=== PATIENT | female | born 1995 | race Caucasian/White ===

== ENCOUNTER 2017-04-01 01:11 | Emergency (ER) | payer BC ==
[2017-04-01 01:53] LABS: #Lymphocytes 0.9 thou/uL (1.20-3.40); #Monocytes 0.1 thou/uL (0.11-0.59); #Neutrophils 4.5 thou/uL (1.40-6.50); %Basophils 0.5 % (0.0-1.0); %Eosinophils 0.6 % (0.0-10.0); %Lymphocytes 15.6 % (28.0-48.0); %Monocytes 2.6 % (0.0-4.0); %Neutrophils 80.8 % (31.0-61.0); Hemoglobin 13.9 g/dL (12.0-16.0); Mean Corpuscular HGB CONC 34.7 g/dL (32.0-36.0); Mean Corpuscular Hemoglobin 32.3 pg (25.0-35.0); Mean Corpuscular Volume 93.1 fl (77.0-87.0); Mean Platelet Volume 6.6 fL (7.4-10.4); Platelet Count 301 thou/uL (130-400); RBC Distribution Width 10.9 % (11.5-14.5); Red Blood Cell (RBC) Count 4.31 mill/uL (4.00-5.20); White Blood Cell (WBC) Count 5.6 thou/uL (4.8-10.8)
[2017-04-01 02:06] LABS: Bilirubin Negative (Negative); Blood, Urine Negative (Negative); Clarity CLOUDY (Clear); Glucose, Urine (Dipstick) Negative (Negative); Leukocyte Small (Negative); Nitrite Negative (Negative); Pregnancy Test - Urine (BHCG) Negative (Negative); Pregu Control Background? CLEAR/WHITE (CLR/WHITE); Pregu Control Bar Appear? YES (CONTROL BAR); Protein, Urine (Dipstick) Negative (Neg-Trace); Specific Gravity 1.024 (1.002-1.036); Specific Gravity, Urine 1.024 (1.002-1.036); Urobilinogen 0.2 mg/dL (0.2-1.0); pH, Urine 5.5 (5.0-9.0)
[2017-04-01 02:07] LABS: Bacteria/HPF Rare-Few HPF (None Seen); Hyaline Casts/LPF 7-10 HYALINE CAST LPF (0-3 Hyaline); Pathc Cast-AUWi Flag 1.89 (0-2.49); RBC/HPF 0-3 HPF (0-3)
[2017-04-01 02:13] LABS: ALT (SGPT) 14 U/L (8-55); AST (SGOT) 16 U/L (5-30); Alkaline Phosphatase 40 U/L (40-150); Anion Gap 14 mmol/L (10-20); BUN (Urea Nitrogen) 12 mg/dL (8.4-21.0); Bilirubin, Total 0.2 mg/dL (0.2-1.2); Calc. Creatinine Clearance 0 mL/min (70-130); Calcium 9.2 mg/dL (7.8-10.44); Carbon Dioxide 24 mmol/L (22-29); Chloride 107 mmol/L (98-107); Estimated GFR-MDRD 84; Globulin 3.2 g/dL (2.4-3.5); Glucose 115 mg/dL (70-105); Potassium 3.9 mmol/L (3.5-5.1); Protein, Total 7.2 g/dL (6.0-8.3); Sodium 141 mmol/L (136-145)
[2017-04-01] MEDS ORDERED: Ondansetron HCl/PF 4 MG/2 ML Vial ONE (02:47)
[2017-04-01] MEDS ORDERED: Dicyclomine 20 MG TAB ONE (02:47)
== END 2017-04-01 04:00 | disposition home or self-care (01) ==
LOC: ERS 01:11
DX: R19.7 Diarrhea, unspecified (principal); E86.0 Dehydration
CPT/HCPCS: 80053; 81003; 81015; 81025; 83605; 85025; 96361; 96374; J2405

== ENCOUNTER 2019-04-17 13:12 | Day surgery (SDC) | payer BC ==
[~2019-04-17 13:12] MED LIST: Dexamethasone 20 MG/5 ML VIAL ONE; Glycopyrrolate 0.2 MG/ML 5 ML SYRINGE ONE; Iopamidol-370 76% 500 ML 1 ML ONE; Ketorolac Tromethamine 30 MG/ML VIAL ONE; Lidocaine 1% PF 5 ML VIAL ONE; Ondansetron PF 4 MG/2 ML Vial ONE; PHENYLEPHRINE-NS 100 MCG/ML 10 ML SYRINGE ONE; PROPOFOL 200 MG/20 ML VIAL ONE; Rocuronium Bromide 10 MG/ML (10ML VIAL) ONE; Succinylcholine Chloride 20 MG/ML 10 ml SYRINGE FS ONE
[2019-04-17 14:22] LABS: Bilirubin Negative (Negative); Blood, Urine Negative (Negative); Clarity Clear (Clear); Glucose, Urine (Dipstick) Normal (Negative); Leukocyte Negative Leu/uL (Negative); Nitrite Negative (Negative); Protein, Urine (Dipstick) Negative (Neg-Trace); Urobilinogen Normal mg/dL (Less than 2)
[2019-04-17] MEDS ORDERED: Morphine 4 MG/ML VIAL ONE (14:23)
[2019-04-17] MEDS ORDERED: Ondansetron PF 4 MG/2 ML Vial ONE (14:23)
[2019-04-17 14:24] LABS: Pregnancy Test - Urine (BHCG) Negative (Negative); Pregu Control Background? CLEAR/WHITE (CLR/WHITE); Pregu Control Bar Appear? YES (CONTROL BAR); Specific Gravity 1.005 (1.002-1.036)
[2019-04-17 14:25] LABS: #Eosinphils 0.1 thou/uL (0.0-0.7); #Lymphocytes 2.2 thou/uL (1.20-3.40); #Monocytes 0.8 thou/uL (0.11-0.59); #Neutrophils 9.4 thou/uL (1.40-6.50); %Basophils 0.3 % (0.0-1.0); %Eosinophils 0.6 % (0.0-10.0); %Lymphocytes 17.5 % (21.0-51.0); %Monocytes 6.4 % (0.0-10.0); %Neutrophils 75.2 % (42.0-75.0); Hemoglobin 14.9 g/dL (12.0-16.0); Mean Corpuscular HGB CONC 34.7 g/dL (32.0-36.0); Mean Corpuscular Hemoglobin 31.9 pg (27.0-31.0); Mean Platelet Volume 6.8 fL (7.4-10.4); Platelet Count 321 thou/uL (130-400); RBC Distribution Width 11.6 % (11.5-14.5); Red Blood Cell (RBC) Count 4.67 mill/uL (4.20-5.40); White Blood Cell (WBC) Count 12.4 thou/uL (4.8-10.8)
[2019-04-17 14:36] LABS: ALT (SGPT) 15 U/L (8-55); AST (SGOT) 12 U/L (5-34); Albumin 4.6 g/dL (3.5-5.0); Alkaline Phosphatase 60 U/L (40-110); Anion Gap 14 mmol/L (10-20); BUN (Urea Nitrogen) 6 mg/dL (7.0-18.7); Bilirubin, Total 0.6 mg/dL (0.2-1.2); Calc. Creatinine Clearance 0 mL/min (70-130); Calcium 9.4 mg/dL (7.8-10.44); Carbon Dioxide 24 mmol/L (22-29); Chloride 105 mmol/L (98-107); Estimated GFR-MDRD 84; Globulin 3.5 g/dL (2.4-3.5); Glucose 95 mg/dL (70-105); Lipase 6 U/L (8-78); Potassium 3.6 mmol/L (3.5-5.1); Protein, Total 8.1 g/dL (6.0-8.3); Sodium 139 mmol/L (136-145)
[2019-04-17 14:39] LABS: BHCG - Serum Negative (NEGATIVE); Pregs Control Background? CLEAR/WHITE (CLR/WHITE); Pregs Control Bar Appear? YES (CONTROL BAR)
--- NOTE | 2019-04-17 15:12 | CT ---
CT Abdomen Pelvis W Con: 04/17/2019 2:01 PM CLINICAL INFORMATION: Generalized abdominal pain that began on Wednesday night COMPARISON: None. TECHNIQUE: Multiple contiguous axial images were obtained and a CT of the abdomen and pelvis with IV contrast. C oronal and sagittal reformats were performed. FINDINGS: Lower Chest: within normal limits. Abdomen: Liver: within normal limits. Bile Ducts: Normal caliber. Gallbladder: No calcified gallstones. Normal caliber wall. Pancreas: within normal limits. Spleen: within normal limits. Adrenals: within normal limits. Kidneys: within normal limits. Pelvis: Reproductive Organs: No pelvic masses. Ureters: within normal limits. Bladder: within normal limits. Peritoneum: No ascites or free air, no fluid collection. Bowel: The appendix is enlarged to 13 mm with surrounding stranding changes consistent with acute quinn endicitis. The large and small bowel are normal in caliber. Mesentery and Retroperitoneum: Mildly enlarged ileocecal lymph nodes. No retroperitoneal adenopathy. Vessels: Normal. Abdominal Wall: within normal limits. Bones: Within normal limits IMPRESSION: Acute appendicitis
[2019-04-17] MEDS ORDERED: Cefepime 2 GM VIAL ONE (16:25)
[2019-04-17] MEDS ORDERED: metroNIDAZOLE 500 MG/100 ML BAG ONE (16:47)
[2019-04-17] MEDS ORDERED: Fentanyl 100 MCG/2 ML VIAL ONE ×2 (17:15→19:05)
[2019-04-17] MEDS ORDERED: Bupivacaine 0.25% HCL 30 ML VIAL ONE (17:17)
[2019-04-17] MEDS ORDERED: Lidocaine 1% w/Epinephrine 1:100K 20 ML VIAL ONE (17:17)
--- NOTE | 2019-04-17 17:31 | HP ---
CHIEF COMPLAINT: Right lower quadrant abdominal pain. HISTORY OF PRESENT ILLNESS: The patient is a 23-year-old previously healthy white female. Yesterday, she had onset of diffuse abdominal pain with nausea. She did not vomit. She presented to the emergency room this afternoon with same complaints, except she noted that her pain had radiated to the right lower quadrant. She denied any urinary symptoms or fever. She underwent evaluation in the emergency room including laboratory and radiologic studies. Her laboratory studies revealed that her metabolic panel was within normal limits. Her urine test was negative and her urinalysis was normal. Her white blood cell count was elevated at 12.7 with a left shift. Hemoglobin level was normal. CT scan of abdomen was obtained revealing a dilated inflamed appendix consistent with acute appendicitis. PAST MEDICAL HISTORY: Otherwise negative. PAST SURGICAL HISTORY: None. MEDICATIONS: She takes an oral contraceptive pill. ALLERGIES: TO SULFA. PERSONAL AND SOCIAL HISTORY: She is a student. She does not smoke nor does she drink alcohol. Multiple members of her family are present at bedside. REVIEW OF SYSTEMS: Otherwise unremarkable. FAMILY HISTORY: Noncontributory. PHYSICAL EXAMINATION: VITAL SIGNS: She is afebrile, although she did have an an elevated temperature up to 100.5. Pulse is elevated about 108, and blood pressure 137/93. GENERAL: She is a well-developed, well-nourished, moderately obese white female, resting in bed, in no acute distress. She is alert and oriented x3. HEAD, EYES, EARS, NOSE, AND THROAT: Unremarkable. NECK: Supple without mass or tenderness. LUNGS: Clear to auscultation throughout. CARDIAC: Regular rate and rhythm without murmur. ABDOMEN: Soft. Bowel sounds are present, but hypoactive. She has focal tenderness in the right lower quadrant with obvious guarding. There are no other tender areas within her abdomen. EXTREMITIES: Unremarkable. ASSESSMENT: The patient has acute appendicitis. PLAN: Laparoscopic appendectomy. I have discussed the operation in detail with the patient as well as potential risks. She agrees to proceed with laparoscopic appendectomy at this time and surgery will proceed this evening. Job ID: [id number]
[2019-04-17] MEDS ORDERED: Midazolam HCl 2 mg/2 ml Vial ONE (17:45)
[2019-04-17] MEDS ORDERED: traMADol HCl 50 MG TAB ONE (20:01)
--- NOTE | 2019-04-18 14:02 | OP ---
DATE OF PROCEDURE: 04/17/2019 PREOPERATIVE DIAGNOSIS: Acute appendicitis. POSTOPERATIVE DIAGNOSIS: Acute appendicitis. OPERATION PERFORMED: Laparoscopic appendectomy. ANESTHESIA: General endotracheal. INDICATIONS: The patient is a 23-year-old white female. She presented with right lower quadrant abdominal pain and leukocytosis and had CT-proven appendicitis. She is taken to the operating room at this time for laparoscopic appendectomy. DESCRIPTION OF OPERATION: Informed consent was obtained. The patient was taken to the operating room, where general endotracheal anesthesia was obtained with the patient in supine position. Salmeron catheter was placed, abdomen was prepped with ChloraPrep and draped in sterile fashion. Local anesthetic was infiltrated using 0.25% Marcaine with epinephrine. A 5 mm infraumbilical incision was created through which a Veress needle was passed to the peritoneal cavity and pneumoperitoneum was established using carbon dioxide up to pressure of 15 mmHg. A 5 mm trocar port was passed through the same incision. Laparoscopic camera was passed through this port. Under direct vision, 2 additional ports were placed including a 5 mm left lower quadrant port and a 12 mm suprapubic port. Attention was turned to the right lower quadrant. the appendix was identified. The distal tip of the appendix actually appeared to be fairly normal. The small bowel was mobilized out of the way and the mesoappendix was grasped and taken down using electrocautery. The base of the appendix appeared to be thickened and was definitely inflamed, consistent with appendicitis. I continued to mobilize the mesoappendix until I dissected all the way back to the cecum. Hemostasis was maintained using electrocautery. The base of the appendix was to be able to divide with an Endoloop by obtaining the Danielson stapler. I fired a single blue load of the stapler across the base of the appendix to include a cuff of cecum. The specimen was removed using a specimen retrieval sac through the 12 mm port. The fascia was then closed with 0 Vicryl suture using a GraNee needle. The staple line was inspected and found to be intact and hemostatic. The right lower quadrant was irrigated. There had certainly been no evidence of perforation or bleeding. The pelvis was inspected. Both adnexa were identified and within normal limits. The pelvis was thoroughly irrigated and all irrigant was aspirated. All ports and instruments were removed under direct vision. Pneumoperitoneum was carefully evacuated. 0.25% Marcaine with epinephrine was infiltrated at each port site. Skin edges approximated with 4-0 Monocryl subcuticular suture. Dermabond was placed externally. There were no complications and blood loss was negligible. The patient tolerated the procedure well, was taken to recovery room . Job ID: [id number]
== END 2019-04-17 21:10 | disposition home or self-care (01) ==
LOC: ERS 13:12 → SDC 17:28
PROVIDERS: ATTEND Specialist
PROC: 0DTJ4ZZ Resection of Appendix, Percutaneous Endoscopic Approach (ICD-10-PCS; principal; 2019-04-17)
DX: K35.80 Unspecified acute appendicitis (principal); K38.8 Other specified diseases of appendix; Z88.0 Allergy status to penicillin; Z88.1 Allergy status to other antibiotic agents; Z88.2 Allergy status to sulfonamides
CPT/HCPCS: 74177; 80053; 81003; 81025; 83605; 83690; 84703; 85025; 88304; 94760; 96361; 96365; 96375; J0692; J1100; J1885; J2001; J2250; J2270; J2405; J2704; J3010; Q9967; S0020